=== PATIENT | female | born 1990 | race Caucasian/White ===

== ENCOUNTER 2022-11-05 17:23 | Emergency (ER) | payer MEDICAID ==
[~2022-11-05] VITALS: Ht 167.6 cm; Wt 108.0 kg
[2022-11-05 17:39] VITALS: BP 180/99; PULSE 104; RESP 20; TEMP 98.7; O2SAT 100
[2022-11-05] MEDS ORDERED: AMOX-494 MT (17:44)
== END 2022-11-05 18:46 | disposition home or self-care (01) ==
LOC: ER 17:23
DX: H66.92 Otitis media, unspecified, left ear (principal)
CPT/HCPCS: 99281; 99283